=== PATIENT | male | born 1990 | race Caucasian/White ===

== ENCOUNTER 2018-03-13 13:12 | Observation (INO) | payer SELFPAY ==
[~2018-03-13] VITALS: Ht 175.3 cm; Wt 104.0 kg
[2018-03-13 13:25] VITALS: BP 143/80; PULSE 83; RESP 18; TEMP 98.6; O2SAT 96
--- NOTE | 2018-03-13 13:33 | PD ---
HPI Chief Complaint: Neuro Symptoms/ Deficits Time Seen by Provider: 13:22 Travel History International Travel<30 days: No Contact w/Intl Traveler<30days: No Traveled to known affect area: No History of Present Illness HPI This 27-year-old male says he was on the phone when he noted that his speech was garbled. The words were very slurred and he had trouble finding the words he wanted. He says this lasted for possibly a minute. He did not have headache this has never happened to him before. He did not notice any weakness of his arms or legs. Says his legs did feel a little bit shaky but he was able to come here under his own. He became quite sweaty at home. He is generally healthy. He does take some dietary supplements. He started a thermogenic testosterone booster 2 days ago. PFSH Past Medical History Medical History: Denies Significant Hx Asthma: Yes Cancer: No Diabetes: No Diminished Hearing: No Glaucoma: No Hepatitis: No Hiatal Hernia: No Hypertension: No Respiratory: Yes (ASTHMA) Immunizations Current: Yes Thyroid Disease: No Tetanus Vaccination: < 5 Years Influenza Vaccination: Yes Past Surgical History Abdominal Surgery: Yes (HERNIA AT ) Cardiac Surgery: No Ear Surgery: No Endocrine Surgery: No Eye Surgery: No Genitourinary Surgery: No Gynecologic Surgery: No Oral Surgery: No Pacemaker: No Thoracic Surgery: No Tonsillectomy: Yes Other Surgery: Yes (HERNIA REPAIR) Social History Alcohol Use: Yes (occas.) Tobacco Use: No Substance Use: No Allergies-Medications (Allergen,Severity, Reaction): Coded Allergies: No Known Allergies (Verified Adverse Reaction, Unknown, 03/13/18) Reported Meds & Prescriptions Reported Meds & Active Scripts Active No Active Prescriptions or Reported Medications Review of Systems General / Constitutional: No: Fever, Chills Eyes: No: Diploplia, Blurred Vision HENT: No: Headaches, Vertigo Cardiovascular: No: Chest Pain or Discomfort, Palpitations Respiratory: No: Cough, Shortness of Breath Gastrointestinal: No: Nausea, Vomiting Genitourinary: No: Urgency, Frequency Musculoskeletal: No: Myalgias, Arthralgias Skin: No Rash, No Itching Neurologic: Positive: Slurred Speech, No: Weakness Psychiatric: No: Anxiety, Depression Endocrine: No: Heat Intolerance, Cold Intolerance Hematologic/Lymphatic: No: Easy Bruising Physical Exam Narrative GENERAL: Well-developed male SKIN: Focused skin assessment warm/dry. HEAD: Atraumatic. Normocephalic. EYES: Pupils equal and round. No scleral icterus. No injection or drainage. ENT: No nasal bleeding or discharge. Mucous membranes pink and moist. NECK: Trachea midline. No JVD. CARDIOVASCULAR: Regular rate and rhythm. No murmur appreciated. RESPIRATORY: No accessory muscle use. Clear to auscultation. Breath sounds equal bilaterally. GASTROINTESTINAL: Abdomen soft, non-tender, nondistended. Hepatic and splenic margins not palpable. MUSCULOSKELETAL: No obvious deformities. No clubbing. No cyanosis. No edema. NEUROLOGICAL: Awake and alert. No obvious cranial nerve deficits. Motor grossly within normal limits. Normal speech. PSYCHIATRIC: Appropriate mood and affect; insight and judgment normal. Data Data Last Documented VS Vital Signs Date Time Temp Pulse Resp B/P (MAP) Pulse Ox O2 Delivery O2 Flow Rate FiO2 03/13/18 13:28 Room Air 03/13/18 13:25 98.6 83 18 143/80 (101) 96 Orders Orders Electrocardiogram (03/13/18 13:29) Complete Blood Count With Diff (03/13/18 13:29) Comprehensive Metabolic Panel (03/13/18 13:29) Troponin I (03/13/18 13:29) Prothrombin Time / Inr (Pt) (03/13/18 13:29) Act Partial Throm Time (Ptt) (03/13/18 13:29) Urinalysis - C+S If Indicated (03/13/18 13:29) Magnesium (Mg) (03/13/18 13:29) Ct Brain W/O Iv Contrast(Rout) (03/13/18 13:29) Aspirin (Aspirin) (03/13/18 14:15) Labs Laboratory Tests Test 03/13/18 13:35 White Blood Count 6.4 TH/MM3 Red Blood Count 4.51 MIL/MM3 Hemoglobin 14.0 GM/DL Hematocrit 41.1 % Mean Corpuscular Volume 91.2 FL Mean Corpuscular Hemoglobin 31.0 PG Mean Corpuscular Hemoglobin Concent 34.1 % Red Cell Distribution Width 12.2 % Platelet Count 348 TH/MM3 Mean Platelet Volume 7.6 FL Neutrophils (%) (Auto) 54.3 % Lymphocytes (%) (Auto) 28.9 % Monocytes (%) (Auto) 8.4 % Eosinophils (%) (Auto) 7.7 % Basophils (%) (Auto) 0.7 % Neutrophils # (Auto) 3.5 TH/MM3 Lymphocytes # (Auto) 1.9 TH/MM3 Monocytes # (Auto) 0.5 TH/MM3 Eosinophils # (Auto) 0.5 TH/MM3 Basophils # (Auto) 0.0 TH/MM3 CBC Comment DIFF FINAL Differential Comment Prothrombin Time 11.1 SEC Prothromb Time International Ratio 1.1 RATIO Activated Partial Thromboplast Time 23.7 SEC Blood Urea Nitrogen 10 MG/DL Creatinine 1.20 MG/DL Random Glucose 109 MG/DL Total Protein 7.5 GM/DL Albumin 4.2 GM/DL Calcium Level 8.6 MG/DL Magnesium Level 2.0 MG/DL Alkaline Phosphatase 45 U/L Aspartate Amino Transf (AST/SGOT) 69 U/L Alanine Aminotransferase (ALT/SGPT) 105 U/L Total Bilirubin 0.6 MG/DL Sodium Level 140 MEQ/L Potassium Level 3.6 MEQ/L Chloride Level 107 MEQ/L Carbon Dioxide Level 25.2 MEQ/L Anion Gap 8 MEQ/L Estimat Glomerular Filtration Rate 72 ML/MIN Troponin I LESS THAN 0.02 NG/ML MDM Medical Decision Making Medical Screen Exam Complete: Yes Emergency Medical Condition: Yes Medical Record Reviewed: Yes Differential Diagnosis Differential includes TIA, CVA, tumor Narrative Course CT scan is negative. EKG shows sinus rhythm. This appears to be a TIA from which the patient has had a complete recovery. He will be admitted for further evaluation. He has been given aspirin Diagnosis Primary Impression: Transient ischemic attack Admitting Information Admitting Physician Requests: Observation Scripts No Active Prescriptions or Reported Meds Sachin Sadler MD March 13, 2018 13:33
--- NOTE | 2018-03-13 14:04 | RADRPT ---
EXAM DATE: 03/13/2018 2:00 PM EDT AGE/SEX: 27 years / Male INDICATIONS: Episode of slurred speech and bilateral extremity weakness, now resolved. CLINICAL DATA: This is the patient's initial encounter. Patient reports that signs and symptoms have been present for 1 day and indicates a pain score of 0/10. MEDICAL/SURGICAL HISTORY: None. Tonsillectomy. Hernia surgery. RADIATION DOSE: 57.02 CTDI (mGy) COMPARISON: No prior [facility] exams available for comparison. TECHNIQUE: CT of the head without contrast. Using automated exposure control and adjustment of the mA and/or kV according to patient size, radiation dose was kept as low as reasonably achievable to ob tain optimal diagnostic quality images. FINDINGS: Cerebrum: The ventricles are normal for age. No evidence of midline shift, mass lesion, hemorrhage or acute infarction. No extraaxial fluid collections are seen. Posterior Fossa: The cerebellum and brainstem are intact. The 4th ventricle is midline. The cerebe llopontine angle is unremarkable. Extracranial: The visualized portion of the orbits is intact. Skull: The calvaria is intact. No evidence of skull fracture. CONCLUSION: 1. No acute intracranial abnormality Electronically signed by: Francois Cortes MD 03/13/2018 2:03 PM EDT
[2018-03-13 14:07] LABS: AUTOMATED NEUTROPHIL # 3.5 TH/MM3 (1.8-7.7); BASOPHIL % 0.7 % (0.0-2.0); EOSINOPHIL # 0.5 TH/MM3 (0-0.4); EOSINOPHIL % 7.7 % (0.0-4.0); HEMATOCRIT 41.1 % (39.0-51.0); LYMPH % 28.9 % (9.0-44.0); LYMPHOCYTE # 1.9 TH/MM3 (1.0-4.8); MEAN CELL VOLUME 91.2 FL (80.0-100.0); MEAN CORPUSCULAR HGB CONC 34.1 % (32.0-36.0); MEAN PLATELET VOLUME 7.6 FL (7.0-11.0); MONO % 8.4 % (0.0-8.0); MONOCYTE # 0.5 TH/MM3 (0-0.9); NEUT % 54.3 % (16.0-70.0); PLATELET COUNT 348 TH/MM3 (150-450); RED BLOOD COUNT 4.51 MIL/MM3 (4.50-5.90); RED CELL DISTRIBUTION WIDTH 12.2 % (11.6-17.2); WHITE BLOOD COUNT 6.4 TH/MM3 (4.0-11.0)
[2018-03-13] MEDS ORDERED: ASPIRIN 325 MG TAB PO ONE (14:15)
[2018-03-13 14:16] LABS: CHLORIDE 107 MEQ/L (98-107); SODIUM (NA) 140 MEQ/L (136-145)
[2018-03-13 14:19] LABS: ALBUMIN 4.2 GM/DL (3.4-5.0); BICARBONATE 25.2 MEQ/L (21.0-32.0); CALCIUM 8.6 MG/DL (8.5-10.1); GLUCOSE,RANDOM 109 MG/DL (74-106)
[2018-03-13 14:20] LABS: BLOOD UREA NITROGEN 10 MG/DL (7-18)
[2018-03-13 14:22] LABS: ALT (GPT) 105 U/L (12-78)
[2018-03-13 14:23] LABS: AST (GOT) 69 U/L (15-37); GLOMERULAR FILTRATION RATE 72 ML/MIN (>89)
[2018-03-13 14:24] LABS: TOTAL BILIRUBIN ADULT 0.6 MG/DL (0.2-1.0); TOTAL PROTEIN 7.5 GM/DL (6.4-8.2)
[2018-03-13 14:25] LABS: ALKALINE PHOSPHATASE 45 U/L (45-117)
[2018-03-13 14:27] LABS: INTERNATIONAL NORMALIZED RATIO 1.1 RATIO; PROTHROMBIN TIME - PATIENT 11.1 SEC (9.8-11.6)
[2018-03-13 14:28] LABS: TROPONIN I LESS THAN 0.02 NG/ML (0.02-0.05)
[2018-03-13] MEDS ORDERED: ACETAMINOPHEN 325 MG TAB PO PRN (15:30)
[2018-03-13] MEDS ORDERED: MAGNESIUM HYDROXIDE SUSP 30 ML CUP PO PRN (15:30)
[2018-03-13] MEDS ORDERED: SODIUM CHLORIDE 0.9% FLUSH 10 ML FLUSH IV FLUSH PRN (15:30)
[2018-03-13] MEDS ORDERED: NALOXONE HCL 0.4 MG/ML AMP IV PUSH PRN (15:30)
[2018-03-13 16:00] VITALS: BP 148/85; PULSE 76; RESP 17; TEMP 97.1; O2SAT 98
--- NOTE | 2018-03-13 18:13 | HHI.HP ---
HPI Service [facility] Primary Care Physician No Primary Care Physician Admission Diagnosis TIA Diagnoses: (1) Neurological deficit, transient (2) Transient ischemic attack Chief Complaint: Slurred speech Travel History International Travel<30 Days: No Contact w/Intl Traveler <30 Da: No Traveled to Known Affected Are: No History of Present Illness 27-year-old male without any significant past medical history was brought to the ED for evaluation of slurred speech followed by lower extremities weakness and what patient described health shaking legs without any numbness. Patient states, he was on the phone when he suddenly noticing his speech that was Garbled. He states, he was having trouble finding words and he was getting more difficult for him to pronounce board as well. This last states 2 minutes. During that time, he had a mild pressure headache without any visual changes. Has these resolved patients woke back and felt the need to communicate this finding with his mom. Has he was making his way to the car for the ED patient become dizzy, and had a feeling sensation of doom. Patient stated he started panicking and dance 911 was called and the back was brought in to take patient to the emergency department. He reports starting thermogenic testosterone booster 2 days ago. He has no other focal neurologic deficits. He denies any GI bleed. During my exam, patient stated the symptoms have clearly resolved. 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 SKIN: No rashes, ecchymoses or lesions. Cool and dry. HEAD: Atraumatic. Normocephalic. No temporal or scalp tenderness. EYES: Pupils equal round and reactive. Extraocular motions intact. No scleral icterus. No injection or drainage. ENT: Nose without bleeding, purulent drainage or septal hematoma. Throat without erythema, tonsillar hypertrophy or exudate. Uvula midline. Airway patent. NECK: Trachea midline. No JVD or lymphadenopathy. Supple, nontender, no meningeal signs. CARDIOVASCULAR: Regular rate and rhythm without murmurs, gallops, or rubs. RESPIRATORY: Clear to auscultation. Breath sounds equal bilaterally. No wheezes , rales, or rhonchi. GASTROINTESTINAL: Abdomen soft, non-tender, nondistended. No hepato-splenomegaly , or palpable masses. No guarding. MUSCULOSKELETAL: Extremities without clubbing, cyanosis, or edema. No joint tenderness, effusion, or edema noted. No calf tenderness. Negative Homans sign bilaterally. NEUROLOGICAL: Awake and alert. Cranial nerves II through XII intact. Motor and sensory grossly within normal limits. Five out of 5 muscle strength in all muscle groups. Normal speech. Laboratory Laboratory Tests Test 03/13/18 13:35 White Blood Count 6.4 Red Blood Count 4.51 Hemoglobin 14.0 Hematocrit 41.1 Mean Corpuscular Volume 91.2 Mean Corpuscular Hemoglobin 31.0 Mean Corpuscular Hemoglobin Concent 34.1 Red Cell Distribution Width 12.2 Platelet Count 348 Mean Platelet Volume 7.6 Neutrophils (%) (Auto) 54.3 Lymphocytes (%) (Auto) 28.9 Monocytes (%) (Auto) 8.4 Eosinophils (%) (Auto) 7.7 Basophils (%) (Auto) 0.7 Neutrophils # (Auto) 3.5 Lymphocytes # (Auto) 1.9 Monocytes # (Auto) 0.5 Eosinophils # (Auto) 0.5 Basophils # (Auto) 0.0 CBC Comment DIFF FINAL Differential Comment Prothrombin Time 11.1 Prothromb Time International Ratio 1.1 Activated Partial Thromboplast Time 23.7 Blood Urea Nitrogen 10 Creatinine 1.20 Random Glucose 109 Total Protein 7.5 Albumin 4.2 Calcium Level 8.6 Magnesium Level 2.0 Alkaline Phosphatase 45 Aspartate Amino Transf (AST/SGOT) 69 Alanine Aminotransferase (ALT/SGPT) 105 Total Bilirubin 0.6 Sodium Level 140 Potassium Level 3.6 Chloride Level 107 Carbon Dioxide Level 25.2 Anion Gap 8 Estimat Glomerular Filtration Rate 72 Troponin I LESS THAN 0.02 Result Diagram: 03/13/18 1335 03/13/18 1335 Imaging Last Impressions Head CT 03/13/18 1329 Signed Impressions: CONCLUSION: 1. No acute intracranial abnormality Septic Shock Reassessment Septic shock perfusion: reassessment completed Caprini VTE Risk Assessment Caprini VTE Risk Assessment: No/Low Risk (score <= 1) Caprini Risk Assessment Model Point Value = 1 Point Value = 2 Point Value = 3 Point Value = 5 Age 41-60 Minor surgery BMI > 25 kg/m2 Swollen legs Varicose veins or History of unexplained or recurrent spontaneous Oral contraceptives or hormone replacement Sepsis (< 1 month) Serious lung disease, including pneumonia (< 1 month) Abnormal pulmonary function Acute myocardial infarction Congestive heart failure (< 1 month) History of inflammatory bowel disease Medical patient at bed rest Age 61-74 Arthroscopic surgery Major open surgery (> 45 min) Laparoscopic surgery (> 45 min) Malignancy Confined to bed (> 72 hours) Immobilizing plaster cast Central venous access Age >= 75 History of VTE Family history of VTE Factor V Leiden Prothrombin [id number] Lupus anticoagulant Anticardiolipin antibodies Elevated serum homocysteine Heparin-induced thrombocytopenia Other congenital or acquired thrombophilia Stroke (< 1 month) Elective arthroplasty Hip, pelvis, or leg fracture Acute spinal cord injury (< 1 month) Prophylaxis Regimen Total Risk Factor Score Risk Level Prophylaxis Regimen 0-1 Low Early ambulation 2 Moderate Order ONE of the following: *Sequential Compression Device (SCD) *Heparin 5000 units SQ BID 3-4 Higher Order ONE of the following medications: *Heparin 5000 units SQ TID *Enoxaparin/Lovenox 40 mg SQ daily (WT < 150 kg, CrCl > 30 mL/min) *Enoxaparin/Lovenox 30 mg SQ daily (WT < 150 kg, CrCl > 10-29 mL/min) *Enoxaparin/Lovenox 30 mg SQ BID (WT < 150 kg, CrCl > 30 mL/min) AND/OR *Sequential Compression Device (SCD) 5 or more Highest Order ONE of the following medications: *Heparin 5000 units SQ TID (Preferred with Epidurals) *Enoxaparin/Lovenox 40 mg SQ daily (WT < 150 kg, CrCl > 30 mL/min) *Enoxaparin/Lovenox 30 mg SQ daily (WT < 150 kg, CrCl > 10-29 mL/min) *Enoxaparin/Lovenox 30 mg SQ BID (WT < 150 kg, CrCl > 30 mL/min) AND *Sequential Compression Device (SCD) Assessment and Plan Problem List: (1) Neurological deficit, transient ICD Code: R29.818 - Other symptoms and signs involving the nervous system (2) Transient ischemic attack ICD Code: G45.9 - Transient cerebral ischemic attack, unspecified Status: Acute Assessment and Plan 27-year-old man with Neurologic deficit, transient Transient ischemic attack Head CT noted and reviewed by me without any intracranial abnormality We will check brain MRI, carotid ultrasound, EEG, drug screen and 2D echo Neurology consultation as needed DVT prophylaxis: Low risk for VTE Code Status Full code Discussed Condition With Patient, ED physician Francois Hutchison MD March 13, 2018 18:13
[2018-03-13 20:00] VITALS: BP 145/78; PULSE 76; RESP 20; TEMP 97.2; O2SAT 96
[2018-03-13 21:00] VITALS: PULSE 68
[2018-03-13] MEDS: SODIUM CHLORIDE 0.9% FLUSH 10 ML FLUSH IV FLUSH SCH (22:31)
[2018-03-14 00:15] VITALS: BP 134/74; PULSE 84; RESP 20; TEMP 96.4; O2SAT 95
[2018-03-14 03:11] LABS: BILIRUBIN, URINE NEG (NEG); BLOOD, URINE NEG (NEG); GLUCOSE,URINE NEG (NEG); KETONE, URINE NEG (NEG); NITRITE,URINE NEG (NEG); URINE COLOR YELLOW (YELLW/STRAW); URINE LEUKOCYTE ESTERASE NEG (NEG)
[2018-03-14 03:21] LABS: AMORPHOUS SEDIMENT, URINE FEW; RBC, URINE 0-2 /hpf (0-3); SQUAMOUS EPITHELIAL CELL URINE 0-5 /hpf (0-5); WBC, URINE 0-2 /hpf (0-5)
[2018-03-14 05:05] VITALS: BP 160/86; PULSE 77; RESP 20; TEMP 96.6; O2SAT 96
[2018-03-14 07:54] VITALS: BP 132/72; PULSE 75; RESP 19; TEMP 97.8; O2SAT 95
[2018-03-14] MEDS: SODIUM CHLORIDE 0.9% FLUSH 10 ML FLUSH IV FLUSH SCH (09:00)
--- NOTE | 2018-03-14 09:40 | HHI.PR ---
Subjective Remarks Follow-up neurologic deficits March 14, 2018-patient seen and examined, denies any more symptoms of substernal speech. Has no neuro deficits overnight. Patient stated he was taken cellulose , and this may be the reason why yesterday had slurring of the speech. Patient refused any testing including brain MRI as well as carotid ultrasound, states he is unsure and he will do it when he get insurance Objective Vitals Vital Signs Date Time Temp Pulse Resp B/P (MAP) Pulse Ox O2 Delivery O2 Flow Rate FiO2 03/14/18 07:54 97.8 75 19 132/72 (92) 95 03/14/18 05:05 96.6 77 20 160/86 (110) 96 03/14/18 00:15 96.4 84 20 134/74 (94) 95 03/13/18 21:00 68 03/13/18 20:00 97.2 76 20 145/78 (100) 96 03/13/18 16:00 97.1 76 17 148/85 (106) 98 03/13/18 13:28 Room Air 03/13/18 13:25 98.6 83 18 143/80 (101) 96 I/O 03/13/18 03/13/18 03/13/18 03/14/18 03/14/18 03/14/18 07:00 15:00 23:00 07:00 15:00 23:00 Intake Total 480 ml 120 ml 120 ml Output Total 400 ml Balance 480 ml -280 ml 120 ml Intake Oral 480 ml 120 ml 120 ml Output Urine Total 400 ml # Voids 1 # Bowel Movements 0 Result Diagram: 03/13/18 1335 03/13/18 1335 Imaging Last Impressions Head CT 03/13/18 1329 Signed Impressions: CONCLUSION: 1. No acute intracranial abnormality Objective Remarks GENERAL: NAD SKIN: Warm and dry. HEAD: Normocephalic. EYES: No scleral icterus. No injection or drainage. NECK: Supple, trachea midline. No JVD or lymphadenopathy. CARDIOVASCULAR: Regular rate and rhythm without murmurs, gallops, or rubs. RESPIRATORY: Breath sounds equal bilaterally. No accessory muscle use. GASTROINTESTINAL: Abdomen soft, non-tender, nondistended. MUSCULOSKELETAL: No cyanosis, or edema. BACK: Nontender without obvious deformity. No CVA tenderness. A/P Problem List: (1) Neurological deficit, transient ICD Code: R29.818 - Other symptoms and signs involving the nervous system (2) Transient ischemic attack ICD Code: G45.9 - Transient cerebral ischemic attack, unspecified Status: Acute Assessment and Plan 27-year-old man with Neurologic deficit, transient-resolved Transient ischemic attack-resolved Head CT without any intracranial abnormality Patient has refused any more testing including brain MRI, carotid ultrasound , EEG, drug screen and 2D echo He Is currently stable, will discharge home DVT prophylaxis: Low risk for VTE Discharge Planning Discharge patient to home Condition on discharge: Improved Regular Diet as tolerated Ad Amna activity Rx written: None Follow-up with primary care physician in 1 week Francois Hutchison MD March 14, 2018 09:40
--- NOTE | 2018-03-14 14:13 | EKG ---
Date Performed: 03/13/2018 Time Performed: 13:59:23 PTAGE: 27 years EKG: Sinus rhythm MODERATE T-WAVE ABNORMALITY, CONSIDER ANTEROLATERAL ISCHEMIA ABNORMAL ECG PREVIOUS TRACING : 06/09/2014 07.45 Since the previous tracing, no significant change noted DOCTOR: Quentin Roche Interpretating Date/Time 03/14/2018 14:06:29
== END 2018-03-14 09:55 | disposition home or self-care (01) ==
LOC: PHED 13:12 → PHEDA 14:53 → PH3B 15:52
PROVIDERS: ADMIT Hospitalist; ATTEND Hospitalist
DX: G45.9 Transient cerebral ischemic attack, unspecified (principal); R94.31 Abnormal electrocardiogram [ECG] [EKG]; J45.909 Unspecified asthma, uncomplicated
CPT/HCPCS: 70450; 80053; 80307; 81001; 83735; 84484; 85025; 85610; 85730; 93005; 97162; 99285; G0378; G8987; G8988